=== PATIENT | male | born 1950 | race Caucasian/White ===

== ENCOUNTER 2022-06-06 15:16 | Inpatient (IN) ==
[2022-06-06 15:49] LABS: Basophils % 0.3 % (0.0-0.8); Eosinophils % 0.1 % (0.00-10.9); Hematocrit 43.6 VOL% (42.0-52.0); Hemoglobin 14.9 GM/DL (14.0-18.0); Immature Granulocytes % 0.2 %; Immature Granulocytes Absolute 0.03 #; Lymphocytes # 2.7 10*3/uL (1.4-4.0); Lymphocytes % 20.2 % (21.2-54.2); Mean Corpuscular HGB Conc 34.2 GM/DL (32-36); Mean Corpuscular Volume 87.9 FL (87-102); Monocytes # 1.1 10*3/uL (0.11-0.8); Monocytes % 8.1 % (1.7-12.7); Neutrophils % 71.1 % (38.7-73.9); Platelet Count 224 T/CUMM (130-400); Red Blood Count 4.96 MC/CUMM (3.8-5.5); Red Cell Distribution Width 13.5 % (9.3-17.3); White Blood Count 13.38 T/CUMM (4-12)
[2022-06-06 16:04] LABS: Albumin 4.4 G/DL (3.4-5.0); Bilirubin,Total 1.1 MG/DL (0.20-1.00); Osmolality,Calculated 272.1 MOS/KG (273-304); Potassium 3.4 MMOL/L (3.5-5.1); Total Protein 7.5 G/DL (6.4-8.2)
[2022-06-06] MEDS ORDERED: MORPHINE 2 MG/1 ML SYRINGE IV STA (16:25)
[2022-06-06] MEDS ORDERED: ONDANSETRON 4 MG/2 ML VIAL IV STA (16:25)
[2022-06-06] MEDS ORDERED: ASPIRIN CHEW 81 MG TABLET PO STA (16:28)
[2022-06-06] MEDS ORDERED: ONDANSETRON 4 MG/2 ML VIAL IV PRN (17:14)
[2022-06-06] MEDS ORDERED: GLUCAGON 1 MG VIAL IM PRN (17:14)
[2022-06-06] MEDS ORDERED: MORPHINE 2 MG/1 ML SYRINGE IV PRN (17:14)
[2022-06-06] MEDS ORDERED: DEXTROSE 10% 250 ML BAG IV PRN (17:14)
[2022-06-06] MEDS ORDERED: HEPARIN 5,000 UNIT/1 ML VIAL IV ONE (17:18)
[2022-06-06] MEDS ORDERED: HEPARIN DRIP 25,000 UNITS/500 ML PREMIX IV SCH (17:30)
[2022-06-06] MEDS: METOPROLOL TARTRATE 25 MG TABLET PO SCH ×2 (18:45→21:31)
[2022-06-06] MEDS: INSULIN LISPRO 100 UNIT/ML SUBCUT SCH (20:51)
[2022-06-06] MEDS: LOSARTAN 25 MG TABLET PO SCH (21:41)
[2022-06-06] MEDS: ATORVASTATIN 80 MG TABLET PO SCH (21:41)
[2022-06-07] MEDS ORDERED: HEPARIN 1,000 UNIT/1 ML VIAL IV STA (01:27)
[2022-06-07] MEDS ORDERED: HEPARIN 5,000 UNIT/1 ML VIAL IV STA (01:30)
[2022-06-07 04:31] LABS: Basophils % 0.3 % (0.0-0.8); Hematocrit 42.1 VOL% (42.0-52.0); Hemoglobin 14.4 GM/DL (14.0-18.0); Immature Granulocytes % 0.2 %; Immature Granulocytes Absolute 0.02 #; Lymphocytes # 2.6 10*3/uL (1.4-4.0); Lymphocytes % 23.1 % (21.2-54.2); Mean Corpuscular HGB Conc 34.2 GM/DL (32-36); Mean Corpuscular Volume 87.2 FL (87-102); Mean Platelet Volume 9.9 FL (9.6-12.0); Monocytes % 9.1 % (1.7-12.7); Neutrophils % 67.3 % (38.7-73.9); Platelet Count 216 T/CUMM (130-400); Red Blood Count 4.83 MC/CUMM (3.8-5.5); Red Cell Distribution Width 13.6 % (9.3-17.3); White Blood Count 11.44 T/CUMM (4-12)
[2022-06-07 04:57] LABS: Bilirubin,Total 1.1 MG/DL (0.20-1.00); Calcium 9.4 MG/DL (8.5-10.1); Osmolality,Calculated 273.1 MOS/KG (273-304); Potassium 3.3 MMOL/L (3.5-5.1); Thyroid Stimulating Hormone 2.37 uIU/ml (0.358-3.74); Total Protein 7.3 G/DL (6.4-8.2); VLDL Cholesterol 19.8 MG/DL
[2022-06-07] MEDS: INSULIN LISPRO 100 UNIT/ML SUBCUT SCH ×4 (08:31→21:04)
[2022-06-07] MEDS ORDERED: ASPIRIN EC 325 MG TABLET PO SCH (09:00)
[2022-06-07] MEDS: LOSARTAN 25 MG TABLET PO SCH ×2 (09:29→21:03)
[2022-06-07] MEDS: METOPROLOL TARTRATE 25 MG TABLET PO SCH ×2 (09:29→21:03)
[2022-06-07] MEDS ORDERED: POTASSIUM CHLORIDE 20 MEQ TABLET PO STA (10:11)
[2022-06-07] MEDS: ENOXAPARIN 100 MG/ML SYRINGE SUBCUT SCH ×2 (10:41→22:38)
[2022-06-07] MEDS ORDERED: MAGNESIUM SULF RIDER 2 GM/50 ML PREMIX IV ONE (14:17)
[2022-06-07] MEDS: NITROGLYCERIN 2% OINT 1 INCH/GM PACK TOP SCH ×2 (14:43→21:03)
[2022-06-07] MEDS ORDERED: CLOPIDOGREL 75 MG TABLET PO STA (17:46)
[2022-06-07] MEDS: ATORVASTATIN 80 MG TABLET PO SCH (21:04)
[2022-06-08] MEDS: NITROGLYCERIN 2% OINT 1 INCH/GM PACK TOP SCH ×4 (02:01→19:11)
[2022-06-08] MEDS: INSULIN LISPRO 100 UNIT/ML SUBCUT SCH ×4 (10:39→20:23)
[2022-06-08] MEDS: CLOPIDOGREL 75 MG TABLET PO SCH (10:40)
[2022-06-08] MEDS: ASPIRIN EC 81 MG TABLET PO SCH (10:40)
[2022-06-08] MEDS: LOSARTAN 25 MG TABLET PO SCH ×2 (10:40→20:22)
[2022-06-08] MEDS: METOPROLOL TARTRATE 25 MG TABLET PO SCH ×2 (10:40→20:22)
[2022-06-08] MEDS: ENOXAPARIN 100 MG/ML SYRINGE SUBCUT SCH ×2 (10:40→22:31)
[2022-06-08 11:17] LABS: Calcium 9.5 MG/DL (8.5-10.1); Osmolality,Calculated 280.8 MOS/KG (273-304); Potassium 3.9 MMOL/L (3.5-5.1)
[2022-06-08] MEDS: ATORVASTATIN 80 MG TABLET PO SCH (20:22)
[2022-06-09] MEDS: NITROGLYCERIN 2% OINT 1 INCH/GM PACK TOP SCH ×3 (03:07→14:44)
[2022-06-09 06:18] LABS: Basophils % 0.4 % (0.0-0.8); Eosinophils % 0.4 % (0.00-10.9); Hematocrit 38.7 VOL% (42.0-52.0); Hemoglobin 13.3 GM/DL (14.0-18.0); Immature Granulocytes % 0.1 %; Immature Granulocytes Absolute 0.01 #; Lymphocytes # 2.6 10*3/uL (1.4-4.0); Mean Corpuscular HGB Conc 34.4 GM/DL (32-36); Mean Corpuscular Volume 88.6 FL (87-102); Mean Platelet Volume 10.5 FL (9.6-12.0); Monocytes % 10.5 % (1.7-12.7); Neutrophils % 60.6 % (38.7-73.9); Platelet Count 192 T/CUMM (130-400); Red Blood Count 4.37 MC/CUMM (3.8-5.5); Red Cell Distribution Width 13.4 % (9.3-17.3)
[2022-06-09 06:32] LABS: Calcium 8.8 MG/DL (8.5-10.1); Osmolality,Calculated 276.8 MOS/KG (273-304); Potassium 3.6 MMOL/L (3.5-5.1)
[2022-06-09 06:33] LABS: Calcium 8.8 MG/DL (8.5-10.1); Osmolality,Calculated 282.4 MOS/KG (273-304); Potassium 3.9 MMOL/L (3.5-5.1)
[2022-06-09] MEDS ORDERED: diphenhydrAMINE CAP 50 MG CAPSULE PO ONE (08:05)
[2022-06-09] MEDS ORDERED: MAGNESIUM SULF RIDER 2 GM/50 ML PREMIX IV PRN (08:05)
[2022-06-09] MEDS ORDERED: DIAZEPAM 5 MG TABLET PO ONE (08:05)
[2022-06-09] MEDS ORDERED: POTASSIUM CHLORIDE RIDER 10 MEQ/100 ML PREMIX IV PRN (08:05)
[2022-06-09] MEDS: INSULIN LISPRO 100 UNIT/ML SUBCUT SCH ×4 (08:43→20:49)
[2022-06-09] MEDS ORDERED: PNEUMOCOCCAL VACCINE (20 VALENT) 0.5 ML SYRINGE IM ONE (09:00)
[2022-06-09] MEDS: METOPROLOL TARTRATE 25 MG TABLET PO SCH ×2 (10:11→20:33)
[2022-06-09] MEDS: CLOPIDOGREL 75 MG TABLET PO SCH (10:11)
[2022-06-09] MEDS: ASPIRIN EC 81 MG TABLET PO SCH (10:11)
[2022-06-09] MEDS: amLODIPine 10 MG TABLET PO SCH (10:17)
[2022-06-09] MEDS: ENOXAPARIN 100 MG/ML SYRINGE SUBCUT SCH ×2 (10:17→13:11)
[2022-06-09] MEDS: LOSARTAN 25 MG TABLET PO SCH (13:13)
[2022-06-09] MEDS ORDERED: MIDAZOLAM 2 MG/2 ML VIAL ONE ×2 (13:58→14:12)
[2022-06-09] MEDS ORDERED: HEPARIN/NACL 0.9% 2 UNITS/ML 2,000 UNIT/1,000 ML BAG IV ONE (13:58)
[2022-06-09] MEDS ORDERED: fentaNYL 100 MCG/2 ML VIAL ONE (13:59)
[2022-06-09] MEDS ORDERED: BIVALIRUDIN 250 MG VIAL IV ONE (14:27)
[2022-06-09] MEDS ORDERED: NITROGLYCERIN DRIP 50 MG/250 ML BOTTLE IV ONE (14:48)
[2022-06-09] MEDS ORDERED: HEPARIN/NACL 0.9% 2 UNITS/ML 1,000 UNIT/500 ML BAG IV ONE (14:58)
[2022-06-09] MEDS ORDERED: TICAGRELOR 90 MG TABLET ONE (15:24)
[2022-06-09] MEDS ORDERED: ACETAMINOPHEN/CODEINE 300-30 MG TABLET PO PRN (15:33)
[2022-06-09] MEDS ORDERED: ACETAMINOPHEN 325 MG TABLET PO PRN (15:33)
[2022-06-09] MEDS ORDERED: SODIUM CHLORIDE 0.9% 1,000 ML IV SCH (16:00)
[2022-06-09] MEDS: TICAGRELOR 90 MG TABLET PO SCH (20:33)
[2022-06-09] MEDS: ATORVASTATIN 80 MG TABLET PO SCH (20:33)
[2022-06-10 05:43] LABS: Basophils % 0.2 % (0.0-0.8); Hematocrit 34.9 VOL% (42.0-52.0); Hemoglobin 11.8 GM/DL (14.0-18.0); Immature Granulocytes % 0.4 %; Immature Granulocytes Absolute 0.04 #; Lymphocytes # 1.7 10*3/uL (1.4-4.0); Lymphocytes % 16.4 % (21.2-54.2); Mean Corpuscular HGB Conc 33.8 GM/DL (32-36); Mean Platelet Volume 10.1 FL (9.6-12.0); Monocytes # 0.8 10*3/uL (0.11-0.8); Monocytes % 7.9 % (1.7-12.7); Neutrophils % 75.1 % (38.7-73.9); Platelet Count 189 T/CUMM (130-400); Red Blood Count 4.01 MC/CUMM (3.8-5.5); Red Cell Distribution Width 13.4 % (9.3-17.3); White Blood Count 10.18 T/CUMM (4-12)
[2022-06-10 06:07] LABS: Calcium 8.3 MG/DL (8.5-10.1); Osmolality,Calculated 280.4 MOS/KG (273-304); Potassium 3.7 MMOL/L (3.5-5.1)
[2022-06-10] MEDS ORDERED: CYANOCOBALAMIN 5000 MCG PO SCH (08:00)
[2022-06-10] MEDS ORDERED: OLMESARTAN 20 MG TABLET PO SCH (08:00)
[2022-06-10] MEDS ORDERED: hydroCHLOROthiazide 12.5 MG CAPSULE PO SCH (08:00)
[2022-06-10] MEDS: INSULIN LISPRO 100 UNIT/ML SUBCUT SCH ×2 (08:17→11:17)
[2022-06-10] MEDS: ASPIRIN EC 81 MG TABLET PO SCH (09:19)
[2022-06-10] MEDS: TICAGRELOR 90 MG TABLET PO SCH (09:19)
[2022-06-10] MEDS: METOPROLOL TARTRATE 25 MG TABLET PO SCH (09:19)
[2022-06-10] MEDS: amLODIPine 10 MG TABLET PO SCH (09:19)
[2022-06-10] MEDS ORDERED: PANTOPRAZOLE 40 MG TABLET PO SCH (09:30)
[2022-06-10 12:25] VITALS: BP 136/72
== END 2022-06-10 14:35 | disposition home or self-care (01) | DRG 247 ==
LOC: N.ED 15:16 → N.EDINP 18:45 → N.TELES 06-07 14:10
PROVIDERS: ADMIT Internal Medicine; ATTEND Internal Medicine
PROC: CLCCHCL (ICD-10-PCS; 2022-06-09 13:45)